=== PATIENT | female | born 1975 | race Caucasian/White ===

== ENCOUNTER → 2017-06-03 | Outpatient (CLI) | payer MEDICAID ==
[~2017-06-03] MED LIST: ADVAIR; ALBUTEROL17 GM; ATIVAN PO; AZMACORT20 GM; BACTRIM DS TABL1 TA1 PO; BENADRYL; BENADRYL25 M3 PO; BENZONATATE200 M1 PO; CLARITIN10 M3 PO; CLARITIN10 MG PO; COMBIVENT INH14.7 GM; COMBIVENT U/D3 ML INH; DILANTIN; DILAUDID4 MG PO; LEVSIN0.125 M3 PO; LIBRIUM; LISINOPRIL20 MG PO; LOMOTIL WHITE2.5 M1 PO; MEDROL; MEDROL4 MG/DOSE- PO; MIDRIN CAPSULE1 CAP; NEURONTIN; PERCOCET 5-3251 TAB PO; PERCOCET5/325 PO; PHENERGAN; PHENERGAN25 M1 PO; PHENOBARB; PHENOBARB PO; PHENOBARBITAL100 MG PO; PREVACID; PRILOSEC; PRILOSEC40 MG PO; QVAR7.3 G1 INH; SEROQUEL; ZOFRAN8 MG PO; ZYPREXA; [UNRECOGNIZED DRUG - OTHER] RC
--- NOTE | ~2017-06-03 | MR17 ---
[facility] A Service of [facility] RADIOLOGY TEXT RESULTS PATIENT: JESSI SMITH LOCATION: [facility] : 79 UNIT #: [id number] AGE: [address]: ELIOT DIAS MD SEX: F ORDER DR: [id number] [facility] [address] [place], [place] [address] [id number] O MR#: [id number] Acc #: [id number] NAME: JESSI SIMTH : 1975 SEX: F STUDY DATE/TIME: 06/03/2017 15:43 UNIT: [facility] ROOM: STUDY DESCRIPTION: MR Brain WWo Contrast Attending Physician: Eliot Dias M.D. Referring Physician: Eliot Dias M.D. Ordering Physician: Eliot Dias M.D. Primary Care Physician: Eliot Dias M.D. MRI CENTER REPORT This report is preliminary unless electronic signature is present. EXAM MRI of the brain with and without contrast dated 06/03/2017. COMPARISON CT head without contrast dated 05/23/2014. HISTORY Patient has been lactating since October 2016. Blurred vision since July 2016. Possible optic neuritis. Failing eyesight. History of headaches and seizures. FINDINGS Multisequence, multiplanar imaging of the brain was obtained with and without contrast. 11 mL of MultiHance was administered intravenously. GFR measured greater than 60. Thin slices through the sella/pituitary gland was obtained with and without contrast. No discrete mass is seen within the pituitary gland. There is expected shape, size and enhancement characteristics. Pituitary stalk is in midline. Optic chiasm, prechiasmatic optic nerves are unremarkable. Vascular flow voids of the major cerebral arteries and dural venous sinuses are not completely included in these thicker slices. S-shaped nasal septal deviation is seen. Paranasal sinus mucosal thickening is seen particularly in bilateral ethmoid (left greater than right). Coronal T2 thin slices through the hippocampal formation limited in evaluation due to motion artifact. It is probably within normal limits. Punctate tiny nonspecific hyperintense T2-signal lesions are noted in the periventricular white matter. IMPRESSION 1. Motion artifact is noted in multiple sequences. 2. Sella and the pituitary gland do not demonstrate any significant abnormality. 3. Minimal hyperintense T2 nonspecific, nonenhancing foci are noted in STS. [facility] A Service of [facility] RADIOLOGY TEXT RESULTS PATIENT: JESSI SMITH LOCATION: [facility] : 79 UNIT #: [id number] AGE: [address]: ELIOT DIAS MD SEX: F ORDER DR: the supratentorial white matter, likely related to minimal chronic microvascular ischemic change or migraine. It is very nonspecific and subtle. Dictated by... Sulema Daniel M.D. THIS IS AN ELECTRONICALLY VERIFIED REPORT Sulema Daniel M.D. at 06/07/2017 2:06 PM CPR/psc TD: 06/06/2017 01:37 JOB #: [id number] MRI CENTER REPORT Page 1 of 1 COPY
[2017-06-03 16:15] LABS: POC - CREATININE 0.94 mg/dL (0.44-1.03); POC - GFR >60.0 mL/min (>60)
== END | disposition home or self-care (01) ==
LOC: CMRI 12:48
PROVIDERS: Internal Medicine
DX: G40.909 Epilepsy, unspecified, not intractable, without status epilepticus (principal); G43.909 Migraine, unspecified, not intractable, without status migrainosus; G35 Multiple sclerosis; H53.8 Other visual disturbances; H54.7 Unspecified visual loss
CPT/HCPCS: 70553; 82565; A9577